=== PATIENT | male | born 1980 | race Caucasian/White ===

== ENCOUNTER 2018-01-18 01:35 | Emergency (ER) | payer SELFPAY ==
[~2018-01-18] VITALS: Ht 182.9 cm; Wt 77.0 kg
[2018-01-18 03:00] VITALS: BP 114/67
== END 2018-01-18 03:25 | disposition home or self-care (01) ==
LOC: EMS 01:37
DX: S60.222A Contusion of left hand, initial encounter (principal); S50.12XA Contusion of left forearm, initial encounter; F17.210 Nicotine dependence, cigarettes, uncomplicated; Z02.89 Encounter for other administrative examinations; Y04.0XXA Assault by unarmed brawl or fight, initial encounter; Y93.89 Activity, other specified; Y92.89 Other specified places as the place of occurrence of the external cause; Y99.8 Other external cause status
CPT/HCPCS: 99284; 99406

== ENCOUNTER 2019-03-17 16:58 | Emergency (ER) | payer SELFPAY ==
[~2019-03-17] VITALS: Ht 182.9 cm; Wt 90.9 kg
[2019-03-17 21:02] VITALS: BP 130/74
== END 2019-03-17 21:06 | disposition home or self-care (01) ==
LOC: EMS 16:59
DX: S52.532A Colles' fracture of left radius, initial encounter for closed fracture (principal); F17.210 Nicotine dependence, cigarettes, uncomplicated; W18.39XA Other fall on same level, initial encounter; Y93.89 Activity, other specified; Y92.89 Other specified places as the place of occurrence of the external cause; Y99.8 Other external cause status
CPT/HCPCS: 29105